=== PATIENT | female | born 1955 | race Caucasian/White ===

== ENCOUNTER 2022-05-22 08:00 | Outpatient (NON) | payer MEDICARE, SELFPAY | END 2022-05-22 08:01 | disposition home or self-care (01) | LOC: ANHLAB 05-23 08:20 | PROVIDERS: PCP Family Medicine Sports Medicine; Visit Provider Internal Medicine Gastroenterology | DX: Z12.11 Encounter for screening for malignant neoplasm of colon (principal); K21.9 Gastro-esophageal reflux disease without esophagitis | CPT/HCPCS: 88305; 88313; 88342 ==

== ENCOUNTER 2022-05-22 11:00 | Day surgery (SDC) | payer MEDICARE, SELFPAY ==
[2022-02-02 08:34] VITALS: BMI 28.0
[2022-05-10 09:49] VITALS: BMI 27.9
[2022-05-22 11:15] VITALS: BP 157/88; PULSE 95; RESP 16; TEMP 36.9; O2SAT 100
--- NOTE | 2022-05-22 12:17 | WPDANESEPPF ---
Anes - Initial Pre Proc Eval Procedure: Operation Date: 05/22/22 12:30 Proposed Procedures p Esophagogastroduodenoscopy - Marlon Bethea MD s Screening Colonoscopy - Marlon Bethea MD Date/Time: 05/22/22 12:17 Surgeon: Marlon Bethea MD Pre Op Diagnosis: Gerd and Neoplasm Screening Patient Data Age: 67 Gender: F Height: 1.6 m Weight: 71.3 kg Allergies Allergy/AdvReac Type Severity Reaction Status Date / Time Penicillins Allergy Intermediate RASH A Verified 05/10/22 09:48 CHILD acetaminophen AdvReac Intermediate SEVERE N/V Verified 05/10/22 09:48 codeine AdvReac Intermediate SEVERE N/V Verified 05/10/22 09:48 lisinopril AdvReac Unknown COUGH Verified 05/10/22 10:00 WINE AdvReac Severe ANAPHALACTIC Uncoded 01/02/22 08:29 REACTION HYDROCODONE BIT AdvReac Intermediate SEVERE N/V Uncoded 05/10/22 09:48 Home Medications Medication Instructions Recorded Confirmed Type amlodipine 5 mg-valsartan 160 mg 1 tablet PO DAILY 04/21/20 05/22/22 History tablet cholecalciferol (vitamin D3) 25 25 mcg PO DAILY 04/21/20 05/22/22 History mcg (1,000 unit) capsule aluminum hydrox-magnesium carb 95 15 ml PO DAILY PRN Acid Reflux 05/10/22 05/22/22 History mg-358 mg/15 mL oral suspension (Gaviscon) atorvastatin 10 mg tablet 10 mg PO DAILY 05/10/22 05/22/22 History Patient hx anesthesia problems: none Family hx anesthesia problems: none Results Review: All pre-operative results and documents have been reviewed as part of the pre-operative evaluation. [facility] Past Medical History Medical History Arthritis of left knee Hyperlipidemia Hypertension Osteoporosis Ulcerative colitis Surgical History Surgical History Fracture of left tibial plateau 1985 ORIF H/O laminectomy H/O: hysterectomy History of carpal tunnel release right, 2019 Dr. Guzman History of hip replacement left, Dr. 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 [employer] Gender identity (if verbalized by the patient): Female Spiritual care concerns: No Anes - Eval Final PreProcedure Day of Procedure 05/22/22 12:17 Patient weight: overweight Heart: regular rate and rhythm Lungs: clear to auscultation Airway: Mallampati scale class II Neurological: alert and oriented Last oral intake: >/= 8 hours ASA classification: III Emergent: no Anesthetic plan: proceed Anesthesia type and monitoring: general GIVS and standard monitoring Results Review: All pre-operative results and documents have been reviewed as part of the pre-operative evaluation. Informed Consent: The patient's anesthetic plan and its attendant risks and benefits were discussed with the patient/family/POA. Questions were solicited and answers provided to the satisfaction of the patient/family/POA.
--- NOTE | 2022-05-22 12:21 | PM.HPGS ---
History of Present Illness History of Present Illness Consent: Risks, benefits, and alternatives have been discussed and questions answered. Patient agrees to proceed with procedure. Chief complaint: Gerd and Neoplasm Screening Narrative: Kathy Ash is a 67 year old female Presents for colonoscopy and EGD. Patient has lifelong history of heartburn. She has substernal burning. Currently only takes [id number]-[id number] antacids with brief results. She denies any bleeding or dysphagia. An EGD is requested. Patient also desires neoplasia screening colonoscopy. Family history is noncontributory. Patient reports weight appetite bowel movements are normal. She has no bleeding. Review of Systems Review of Systems: Review of systems noncontributory. [facility] Past Medical History Medical History Arthritis of left knee Hyperlipidemia Hypertension Osteoporosis Ulcerative colitis Surgical History Surgical History Fracture of left tibial plateau 1985 ORIF H/O laminectomy H/O: hysterectomy History of carpal tunnel release right, 2019 Dr. Guzman History of hip replacement left, Dr. 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[employer] Gender identity (if verbalized by the patient): Female Spiritual care concerns: No Meds Home Medications and Allergies Home Medications Medication Instructions Recorded Confirmed Type amlodipine 5 mg-valsartan 160 mg 1 tablet PO DAILY 04/21/20 05/22/22 History tablet cholecalciferol (vitamin D3) 25 25 mcg PO DAILY 04/21/20 05/22/22 History mcg (1,000 unit) capsule aluminum hydrox-magnesium carb 95 15 ml PO DAILY PRN Acid Reflux 05/10/22 05/22/22 History mg-358 mg/15 mL oral suspension (Gaviscon) atorvastatin 10 mg tablet 10 mg PO DAILY 05/10/22 05/22/22 History Allergies Allergy/AdvReac Type Severity Reaction Status Date / Time Penicillins Allergy Intermediate RASH A Verified 05/10/22 09:48 CHILD acetaminophen AdvReac Intermediate SEVERE N/V Verified 05/10/22 09:48 codeine AdvReac Intermediate SEVERE N/V Verified 05/10/22 09:48 lisinopril AdvReac Unknown COUGH Verified 05/10/22 10:00 WINE AdvReac Severe ANAPHALACTIC Uncoded 01/02/22 08:29 REACTION HYDROCODONE BIT AdvReac Intermediate SEVERE N/V Uncoded 05/10/22 09:48 Exam Narrative: Physical exam reveals patient to be alert. Vital signs stable. HEENT exam is unremarkable. Patient is anicteric. Lungs are clear to auscultation and percussion. Heart is without murmur or extra sounds. Abdomen bowel sounds are present soft nontender with no organomegaly. Digital external rectal exam normal. Assessment and Plan Assessment and plan (1) GERD (gastroesophageal reflux disease): Code(s): K21.9 - Gastro-esophageal reflux disease without esophagitis Status: Acute Assessment and Plan: Patient with long history of persistent heartburn. Poorly responsive to over a counter antacids. Plan for EGD. Anticipate she would benefit from either H2 blockers or PPI therapy. Anti-reflux measures are encouraged. [place] diet. Elevate head of bed at night. Further recommendations may be given after endoscopy. (2) Encounter for screening colonoscopy: Code(s): Z12.11 - Encounter for screening for malignant neoplasm of colon Status: Acute Assessment and Plan: Screening colon
[2022-05-22] MEDS: LACTATED RINGERS 1,000 ML 150 ML IV CONT (12:27)
[2022-05-22 12:57] VITALS: BP 91/74; PULSE 88; RESP 13; O2SAT 97
[2022-05-22 13:07] VITALS: BP 92/58; PULSE 85; RESP 14; O2SAT 100
--- NOTE | 2022-05-22 13:16 | WPDANESPN ---
Anes - Prog Note Post-Op Date/Time: 05/22/22 13:16 Cardiovascular status: normal Respiratory status: normal Airway patency: baseline Mental status: baseline Post-Op hydration status: normal Vital Signs: Last Vital Signs Temp 36.9 C 05/22/22 11:15 Pulse 85 05/22/22 13:07 Resp 14 05/22/22 13:07 BP 92/58 L 05/22/22 13:07 Pulse Ox 100 05/22/22 13:07 O2 Del Method Room Air 05/22/22 13:07 Pain Score (VAS): 0 I/O: Intake & Output 05/21/22 05/22/22 05/22/22 23:59 07:59 15:59 Intake Total 300 Balance 300 Patient Feedback: Patient satisfied with anesthetic care.
[2022-05-22 13:17] VITALS: BP 112/70; PULSE 78; RESP 13; O2SAT 98
== END 2022-05-22 13:39 | disposition home or self-care (01) ==
PROVIDERS: PCP Family Medicine Sports Medicine; Visit Provider Internal Medicine Gastroenterology
PROC: 0DJ08ZZ Inspection of Upper Intestinal Tract, Via Natural or Artificial Opening Endoscopic (ICD-10-PCS; CPT 43235; principal; 2022-05-22 12:30)
PROC: 0DJD8ZZ Inspection of Lower Intestinal Tract, Via Natural or Artificial Opening Endoscopic (ICD-10-PCS; CPT 45378; 2022-05-22 12:30)
DX: Z12.11 Encounter for screening for malignant neoplasm of colon (principal)
CPT/HCPCS: 45380; 43239

== ENCOUNTER 2024-10-07 09:49 | Outpatient (CLI) | payer MEDICARE, SELFPAY ==
--- NOTE | ~2024-10-07 | DEXA_ITS ---
Bone Density Report Name: SHANTE NOBLES Age: 69 Sex: Female Ethnicity: White Date of : 1955 Indication: postmenopausal; screening for osteoporosis; height loss; prior fracture; asthma or emphysema; hysterectomy; Referring Provider: MAGDY JACKSON Study: Bone densitometry was performed. Exam Date: October 07, 2024 Accession number: [id number] Bone Density: Region BMD T-score Z-score Classification AP Spine(L1-L4) 0.728 -2.9 -0.7 Osteoporosis Femoral Neck (Right) 0.687 -1.5 0.4 Osteopenia Total Hip (Right) 0.726 -1.8 -0.2 Osteopenia World Health Organization criteria for BMD impression classify patients as: Normal (T-score at or above -1.0), Osteopenia (T-score between -1.0 and -2.5), or Osteoporosis (T-score at or below -2.5). 10-year Fracture Risk: FRAX not reported because: Some T-score for Spine Total or Hip Total or Femoral Neck at or below -2.5 Prior hip or vertebral fracture Clinical Information Provided by Patient: Have had a previous hip or vertebral fracture Has had a low trauma fracture Has used the following medications: Vitamin D, Calcium Has the following medical conditions: Asthma or Emphysema, Hysterectomy Patient maximum height was 65 Menopause Age: 54 No regular weight bearing exercise Drinks caffeinated beverages Onset of menses at age 10 Number of children 2 Impression: The patient has established osteoporosis, based on the Total Spine T-score and the existence of a prior fracture. The patient has risk factors, including: previous fracture. Discussion: HIGH RISK OF FRACTURE. BONE DENSITY IS UNDESIRABLY LOW AT ONE OR MORE SKELETAL SITES, CONSISTENT WITH POSTMENOPAUSAL OSTEOPOROSIS. This patient's lowest T-score, in a patient who has previously fractured, meets the World Health Organization's (WHO) criteria for severe osteoporosis. In untreated patients, the risk of osteoporotic fracture increases approximately two-fold for each 1.0 SD decrease in T-score. Low bone density is not the only risk factor for fracture; also consider factors such as patient's age, frailty or poor health, risk of falling, risk of injury, previous osteoporotic fracture, family history of osteoporosis, cigarette smoking, low body weight, etc. Not everyone with low bone mineral density has osteoporosis; osteomalacia and other metabolic bone disorders should also be considered. Patients who have osteoporosis should be evaluated for specific diseases and conditions (secondary causes) that may cause or contribute to bone loss. The [place] Association of Clinical Endocrinologists (AACE) and National Osteoporosis Foundation (NOF) recommend pharmacologic intervention for all postmenopausal women with a previous hip or vertebral fracture and a T-score in this range. The patient should follow a healthful lifestyle (good nutrition with adequate calcium and vitamin D, and appropriate weight-bearing exercise). Follow-Up: Consider a repeat BMD and Vertebral Fracture Assessment (VFA) exam in 2 years or sooner if medically necessary, to reassess this patient's status. Reported by: BHARGAVI on 10/07/2024 10:31:00 AM. Reviewed, dictated and finalized at location ADayday [facility]
--- OUTSIDE RECORDS SUMMARY | 2024-10-07 10:50 | XMS_ITS | Encounter Summary ---
Author Organization [facility] Address [facility] [place] [address] Care Team Providers Care Machine Design Engineer Name Role Phone Kari Cronin Primary Care Provider [phone] Anita Croft RN Unavailable [phone] Encounter Details Date Type Department Care Team (Late st Contact Info) Description 05/05/2021 [facility], [address] [address] Chyna Pop MA Social History Tobacco Use Types Packs/Day Years Used Date Smoking Tobacco: Never Smokeless Tobacco: Never Alcohol Use Standard Drinks/Week Comments Yes 0 (1 standard drink = 0.6 oz pur e alcohol) socially AUDIT-C Answer Date Recorded Frequency of Alcohol Consumption Monthly or less 01/05/2019 Average Number of Drinks Not on file 019 Frequency of Binge Drinking Not on file 12/22 PHQ-2 Answer Date Recorded PHQ-2 Score - If the patient scores above 3, please move on to questions 3-9 0 03/07/2021 Comments No Sex and Gender Information Value Date Recorded Sex Assigned at Female 07/22/2023 4:26 PM OFFBEARER SEWER PIPE Legal Sex Female 4:04 PM CDT Gender Identity Female 07/04/2021 2:05 PM OFFBEARER SEWER PIPE Sexual Orientation Straight 07/22/2023 4: 26 PM OFFBEARER SEWER PIPE documented as of this encounter Plan of Treatment Upcoming Encounters Date Type Department Care Team (Late st Contact Info) Description 10/16/2024 2:30 PM CDT Appoint[place] [address] [place] [address] Yolis Chung APRN [address] [facility] [address] [place] [address] 10/23/2024 2:40 PM CDT Office Visit [facility] - [facility] [address] [facility], [address] [place] [address] Blaze Urena MD [address] [place] [address] documented as of this encounter Procedures Procedure Name Priority Date/Time Associated Diagnosis Comments VITAMIN D, 25 OH Routine 05/04/2021 documented in this encounter Results * VITAMIN D, 25 OH (05/04/2021) VITAMIN D 25 HYDROXY S/P/B 42 05/04/2021 us Doc [facility] LABORATORY Final Result documented in this encounter Visit Diagnoses Not on filedocumented in this encounter Additional Health Concerns Assessment Noted Time PHQ-9 Depression Total Score: 0 03/07/20 21 2:50 PM CDT documented as of this encounter Care Teams Machine Design Engineer Relationship Specialty Start Date End Date Kari Cronin DO [address] [place], [place] [id number] PCP - General FAMILY PRACTICE 01/02/19 Anita Croft, RN [address] [place] [address] Dye Can Operator (Ambulatory) REGISTERED NURSE 01/07/24 documented as of this encounter
--- OUTSIDE RECORDS SUMMARY | 2024-10-07 10:50 | XMS_ITS | Clinical Summary ---
Author Organization [facility] Medical [facility] [address] Address [address] [place] [address] Care Team Providers Care Beater Lead Name Role Phone Kari Cronin DO Primary Care Provider [phone] Allergies Active Allergy Reactions Criticality Noted Date Comments Shola Inhibitors Cough Medium 11/29/2011 Cephalosporins Rash Medium 04/23/2011 Diltiazem Unknown Low 04/23/2011 Hydrocodone-Acetaminophen Anxiety Low 04/23/2011 Want to climb [place]. anxious Penicillins Other (See comments) Low 04/20/2013 Medications amlodipine-vals nasim (EXFORGE) 5-160 mg per tablet TAKE 1/2 TABLET BY MOUTH TWICE A DAY 08/24/2019 Active cholecalciferol (VITAMIN D-3) 25 mcg (1,000 unit) tablet Take 1 tablet (1,000 Units total) by mouth daily 06/24/2014 Active ergocalciferol (VITAMIN D) 50,000 unit capsule Take 1 capsule by mouth every 2 (two) weeks 04/24/2015 Active albuterol HFA (PROVENTIL HFA,VENTOLIN HFA,PROAIR HFA) 90 mcg/actuation inhaler Inhale 2 puffs every 4 (four) hours as needed 12/30/2017 Active Active Problems Problem Noted Date Diagnosed Date Age-related osteoporosis wit hout current pathological fracture 09/21/2019 Overview (09/21/2019): Reclast at PCP office? 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 (Primary Dx) 07/17/2024 11:12 AM LEAD SUPPLY WORKER - 07/17/2024 11:59 PM LEAD SUPPLY WORKER Hospital Encounter [facility] Advanced Medicine Breast Imaging [facility] ([facility]) [address] [place] [address] Screening mammogram, encounter for Discharge Disposition: Discharge to home or self care from Last 3 Months Medical History Medical History Date Comments Cataract Family History Medical History Relation Name Comments Broken bones Mother Osteoporosis Mother Family history of osteoporosis - (Added by TW Conv) Osteoporosis Sister Family history of osteoporosis - (Added by TW Conv) Relation Name Status Comments Mother Sister Social History Tobacco Use Types Packs/Day Years Used Date Smoking Tobacco: Never Smokeless Tobacco: Never Comments Unknown Sex and Gender Information Value Date Recorded Sex Assigned at Not on file Legal Sex Female 8:50 PM LEAD SUPPLY WORKER Gender Identity Female 04/15/2018 1:46 PM CDT Sexual Orientation Not on file Obstetrics History Last Filed Vital Signs Vital Sign Reading Time Taken Comments Blood Pressure 155/91 06/22/2015 12:58 PM LEAD SUPPLY WORKER Pulse 68 06/22/2015 12:58 PM LEAD SUPPLY WORKER Temperature - - Respiratory Rate - - Oxygen Saturation - - Inhaled Oxygen Concentration - - Weight 66.7 kg (147 lb) 04/15/2018 2:03 PM CDT Height 163 cm (5' 4.17 ) 04/15/2018 2:03 PM CDT Body Mass Index 25.1 04/15/2018 2:03 PM CDT Plan of Treatment Health Maintenance Due Date Last Done Comments Colon Cancer Screening-Colonoscopy 1955 Depression Screening 1955 Fall Risk Assessment 1955 Hepatitis C Screening 1955 DTaP/Tdap/Td Vaccine (1 - Tdap) 1964 Hepatitis B Screening 1971 Pneumococcal vaccine 65+ (1 of 2 - PCV) 1972 Well Visit 65+ 2018 Osteoporosis Screening-Bone Density Scan 04/15/2020 04/15/2018, 10/16/2016, 06/22/2015, Additional history exists Covid-19 Vaccine (3 - 2023-2 5 season) 2024 01/09/2022, 02/23/2021 Influenza Vaccine (Season Ended) 2025 04/05/20, 03/13/2019 Breast Cancer Screening-Mammogram 07/17/2025 07/17/2024, 07/01/2023, 05/10/2022, Additional history exists Zoster Vaccine Completed 02/06/2023, 10/09/2022 Procedures Procedure Name Priority Date/Time Associated Diagnosis Comments FUNDUS PHOTOS/FAF - OU - BOTH EYES Routine 07/31/2024 4:03 PM LEAD SUPPLY WORKER 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 OCT, RETINA - OU - BOTH EYES Routine 07/31/2024 3:16 PM LEAD SUPPLY WORKER 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 Progression has no prior data. Left Eye Quality was good. Progression has no prior data. Notes OD: inferior nevus, +drusen, no OP; no heme; minimal elevation OS: no rt/b/h Luanne Joseph MD OPHTH PHOTOGRAPHY Final Re sult * OCT, Retina - OU - Both Eyes (07/31/2024 3:16 PM LEAD SUPPLY WORKER) Anatomical Region Laterality Modality Head Optical Coherenc e Tomography Narrative 07/31/2024 3:16 PM LEAD SUPPLY WORKER Right Eye Quality was good. Scan locations included subfoveal. Left Eye Quality was good. Scan locations included subfoveal. Notes No cystoid macular edema (CME) both eyes (OU); PVD OS Luanne Joseph MD OPHTH TOMOGRAPHY Final Res ult * Screening Mammogram Bilateral W Gamaliel (07/17/2024 11:37 AM LEAD SUPPLY WORKER) Anatomical Region Laterality Modality Breast Bilateral Mammography Narrative 07/20/2024 4:31 PM LEAD SUPPLY WORKER Mammogram Technique: Bilateral Digital Breast Tomosynthesis, Bilateral C-view 2D Screening mammogram. Views obtained: bilateral craniocaudal and bilateral mediolateral oblique. Computer Aided Detection was performed. Mammogram Findings: The present examination has been compared to prior imaging studies performed at [facility] on 02/15/2021, 05/10/2022 and 07/01/2023. The breasts are almost entirely fatty. There is no suspicious abnormality in either breast. Impression: There is no mammographic evidence of malignancy. Annual screening mammography is recommended. OVERALL FINAL ASSESSMENT: BI-RADS CATEGORY 1: Negative. Procedure Note Diasy Huynh MD - 07/20/2024 Mammogram Technique: Bilateral Digital Breast Tomosynthesis, Bilateral C-view 2D Screening mammogram. Views obtained: bilateral craniocaudal and bilateral mediolateral oblique. Computer Aided Detection was performed. Mammogram Findings: The present examination has been compared to prior imaging studies performed at [facility] on 02/15/2021, 05/10/2022 and 07/01/2023. The breasts are almost entirely fatty. There is no suspicious abnormality in either breast. Impression: There is no mammographic evidence of malignancy. Annual screening mammography is recommended. OVERALL FINAL ASSESSMENT: BI-RADS CATEGORY 1: Negative. us Self Screening Mammogram IMG MAMMO PROCEDURES Fi nal Result * Dexa Axial Skeleton Bone Density 1 or 2 Site (04/15/2018 2:27 PM CDT) Anatomical Region Laterality Modality Body N/A Radiographic Olimpia ging Narrative 04/15/2018 2:31 PM CDT Patient Name: Shante Ash Date of : 1955 Date of scan: 04/15/2018 Bone mineral density was performed on a [employer] Discovery Densitometer. Machine Cross-calibration and Precision studies have been performed with a least significant change of 0.024 g/cm at the spine, 0.020 g/cm at the total proximal femur, and 0.014g/cm at the forearm. HISTORY: This is a 62 y.o. postmenopausal female with a history of low bone mass and vitamin D deficiency. Currently on treatment with vitamin D. History of tobacco use: History Smoking Status Never Smoker INDICATIONS: Menopause status, history of prior hip fracture, vitamin D deficiency and history of low bone mass. FINDINGS: BONE MINERAL DENSITY OF THE LUMBAR SPINE Bone Mineral Density (BMD) of the lumbar spine was measured from L1-L4 and the average density was calculated to be 0.789 gm/cm. This corresponds to a T-score standard deviations from the mean of young adults of -2.3. When compared to the previous study of 10/16/2016 there has been a measured -0.054 gm/cm -6.5 % decrease which is considered significant. BONE MINERAL DENSITY OF THE PROXIMAL FEMUR Bone Mineral Density (BMD) of the right hip total was found to be 0.703 gm/cm2. This corresponds to a T-score standard deviations from the mean of young adults of -2.0. Femoral neck is 0.667 gm/cm2 with a T-score of -1.6. When compared to the previous study of 10/16/2016 there has been no significant change noted. SUMMARY: Bone mineral density shows evidence of low bone mass in the hip and spine and moderately increased fracture risk. There has been significant decrease in bone mineral density since previous measurement. ADDITIONAL COMMENTS: If the patient has a history of a fragility fracture, a fracture that occurred with trauma equivalent to a fall from a standing position or less, then the diagnosis is osteoporosis. The risk of osteoporotic fracture increases approximately 2-fold for each 1.0 SD decrease in T-score. However, low bone density is not the only risk factor for fracture. Other factors include patient s age, previous osteoporotic fracture or prior fracture as an adult, loss of height of greater than 2 inches, corticosteroid use, risk of falling, risk of injury, and family history of osteoporosis. Not everyone with low bone mineral density has osteoporosis. Osteomalacia and other metabolic bone disorders should also be considered where indicated. Patients who have osteoporosis should be evaluated for specific diseases and conditions (secondary causes) that may cause or contribute to bone loss. Consider repeating this study in 1-2 years to assess the patient s response to treatment, if applicable. It is recommended that any follow up exam be performed on the same machine if possible for better accuracy. DEFINITIONS: Osteoporosis: BMD at or below -2.5 T-score Osteopenia (low bone mass): BMD between -1.0 and-2.5 T-score. The Bone Health Program adopts the following WHO definitions: Osteoporosis: BMD below -2.5 S.D. as compared to the BMD of young normal adults. Osteopenia or Low Bone Mass: BMD between -1.0 and -2.5 S.D. below the BMD of young normal adults. Normal Bone Density: BMD equal to or greater than -1.0 S.D. as compared to the BMD of young normal adults. References: 1) Francisco Javier, Annals of Internal Medicine 114(11): 919-923 (1990) 2) Saucedo, Lancet 341 : 72-75 (1992) 3) Black, Journal Bone and Mineral Research 7(6): 633-8 (1991) 4) Shields, Journal Bone and Mineral Research 8(10):1227-33 (1992) The history and data sections of the bone mineral density scan were prepared by Elana Dawn who is accredited by the International Society of Clinical Densitometry. The overall patient assessment and scan interpretation were performed by Nicole Albright M.D. who is certified by the International Society of Clinical Densitometry. [id number] Nicole Albright MD IMG DXA PROCEDURES Final Re sult from Last 3 Months or Most Recently Relevant to Health Maintenance Insurance [employer] MEDICARE [employer] OPEN ACCESS MEDICARE [facility] MEDICARE [facility] Address: [address] [address] [place] [address] T MEDICARE [facility] MEDIC[facility] Address: [address] [place] [address] Care Teams Beater Lead Relationship Specialty Start Date End Date Kari Cronin DO [address] [place] [address] [place] [address] PCP - General 10/16/16
--- OUTSIDE RECORDS SUMMARY | 2024-10-07 10:50 | XMS_ITS | Encounter Summary ---
Author Organization [facility] Address [facility] [place] [address] Care Team Providers Care Special Needs Child Caregiver Name Role Phone Kari Cronin Beti SIM Primary Care Provider [phone] Reason for Visit * Reason Onset Date Comments Follow Up Call 10/07/2024 Encounter Details Date Type Department Care Team (Late st Contact Info) Description 10/07/2024 Telephone [facility] Medical Group Multispecialty Care - [facility] [address] [facility], [address] [place] [phone] Yolis Chung APRN [address] [facility] [address] [place] [address] Follow Up Call Social History Tobacco Use Types Packs/Day Years Used Date Smoking Tobacco: Never Smokeless Tobacco: Never Alcohol Use Standard Drinks/Week Comments Yes 0 (1 standard drink = 0.6 oz pur e alcohol) socially B1300 Health Literacy Answer Date Recor ded How often do you need to hav e someone help you when you read instructions, pamphlets, or other written material from your doctor or pharmacy? Never 01/06/2024 [facility] Utilities Answer Date Recorded In the past 12 months has th e electric, gas, oil, or water company threatened to shut off services in your home? No 01/06/2024 Humiliation, Afraid, Rape, and Kick questionnair e Answer Date Recorded Within the last year, have y ou been afraid of your partner or ex-partner? No 01/06/2024 Within the last year, have y ou been humiliated or emotionally abused in other ways by your partner or ex-partner? No Within the last year, have y ou been kicked, hit, slapped, or otherwise physically hurt by your partner or ex-partner? No 01/06/2024 Within the last year, have y ou been raped or forced to have any kind of sexual activity by your partner or ex-partner? No 01/06/2024 AUDIT-C Answer Date Recorded Frequency of Alcohol Consumption Monthly or less 01/05/2019 Average Number of Drinks Not on file 019 Frequency of Binge Drinking Not on file 12/22 Overall Financial Resource Strain (CARDIA) Answe r Date Recorded How hard is it for you to pa y for the very basics like food, housing, medical care, and heating? Not hard at all 01/06/2024 PHQ-2 Answer Date Recorded Patient Health Questionnaire-2 Score 0 09/06/2022 [facility] - Occupational Stress Questionnaire Answer Date Recorded Do you feel stress - tense, restless, nervous, or anxious, or unable to sleep at night because your mind is troubled all the time - these days? Not at all 01/06/2024 Exercise Vital Sign Answer Date Recorde d On average, how many days pe r week do you engage in moderate to strenuous exercise (like a brisk walk)? 0 days 01/06/2024 On average, how many minutes do you engage in exercise at this level? 0 min 01/06/2024 Hunger Vital Sign Answer Date Recorded Within the past 12 months, y ou worried that your food would run out before you got the money to buy more. Never true 01/06/20 24 Within the past 12 months, t he food you bought just didn't last and you didn't have money to get more. Never true 01/06/2024 PRAPARE - Transportation Answer Date Re corded In the past 12 months, has l ack of transportation kept you from medical appointments or from getting medications? No 12/22 In the past 12 months, has l ack of transportation kept you from meetings, work, or from getting things needed for daily living? No 01/06/2024 Housing Stability Vital Sign Answer Rene e Recorded In the last 12 months, was t here a time when you were not able to pay the mortgage or rent on time? No 01/06/2024 In the past 12 months, how m any times have you moved where you were living? 1 01/06/2024 At any time in the past 12 m [facility], were you homeless or living in a jail (including now)? No 01/06/2024 Comments No Sex and Gender Information Value Date Recorded Sex Assigned at Female 07/22/2023 4:26 PM ADMINISTRATIVE ASSISTANT FRONT DESK Legal Sex Female 4:04 PM CDT Gender Identity Female 07/04/2021 2:05 PM ADMINISTRATIVE ASSISTANT FRONT DESK Sexual Orientation Straight 07/22/2023 4: 26 PM ADMINISTRATIVE ASSISTANT FRONT DESK documented as of this encounter Functional Status * Are you deaf or do you have serious difficulty hearing Answer Date of Assessment Author Status No 01/06/2024 5:24 PM SANTOST Andreina Díaz RN Active * Are you blind or do you have serious difficulty seeing, even when wearing glasses? Answer Date of Assessment Author Status No 01/06/2024 5:24 PM SANTOST Andreina Díaz RN Active * Do you have serious difficulty walking or climbing stairs? Answer Date of Assessment Author Status No 01/06/2024 5:24 PM SANTOST Adnreina Díaz RN Active * Do you have difficulty dressing or bathing? Answer Date of Assessment Author Status No 01/06/2024 5:24 PM SANTOST Andreina Díaz RN Active * Because of a physical, mental, or emotional condition, do you have difficulty doing errands alone such as visiting a doctor's office or shopping? Answer Date of Assessment Author Status No 01/06/2024 5:24 PM Andreina Rico RN Active documented as of this encounter Mental Status * Because of a physical, mental, or emotional condition, do you have serious difficulty concentrating, remembering, or making decisions? Answer Entry Date Author Status No 01/06/2024 5:24 PM Andreina Rico RN Active documented in this encounter Progress Notes * Mehreen Stein LPN - 10/07/2024 8:41 AM CDT Called patient back. Informed her of CT scan. She states it has already been schedule next week. VU. * Tamela Pinto - 10/07/2024 8:33 AM CDT Patient returned your call. Please give her a call back * Brianda Leums MA - 10/07/2024 8:10 AM CDT Called Kathy and [employer] No name on vm, unable to leave any information. ----- Message from Yolis Chung APRN sent at 10/06/2024 4:21 PM CDT ----- Patient is [address]comm[address] lumbar spine for possible need for bone stimulator. CT ordered. Please call patient. documented in this encounter Plan of Treatment Upcoming Encounters Date Type Department Care Team (Late st Contact Info) Description 10/16/2024 2:30 PM CDT [place] [address] [place] [address] Yolis Chung APRN 3 [facility] [address] [place] [address] 10/23/2024 2:40 PM CDT Office Visit [facility] Medical Group Multispecialty Care - [facility] [address] [facility], [address] [place] [address] Blaze Urena MD 3 [place] [address] documented as of this encounter Goals Goal Patient Goal Type Associated Problems Recent Progress Patient-Stated? Author Family - family caregiver with be involved in care transitions and discharge planning Lifestyle No Venkat Mansfield RN documented as of this encounter Visit Diagnoses Not on filedocumented in this encounter Additional Health Concerns Assessment Noted Time PHQ-9 Depression Total Score: 0 07/06/19 22 1:27 PM ADMINISTRATIVE ASSISTANT FRONT DESK documented as of this encounter Care Teams Special Needs Child Caregiver Relationship Specialty Start Date End Date Kari Cronin DO [address] [place] [address] [place] [address] PCP - General FAMILY PRACTICE 01/02/19 documented as of this encounter
--- OUTSIDE RECORDS SUMMARY | 2024-10-07 10:50 | XMS_ITS | CONTINUITY OF CARE DOCUMENT ---
Author Name mick barton Address Unknown Organization [facility] Address [id number] [place] [address] [address] [place] [address] Phone [phone] Care Team Providers Care Physical Security Specialist Name Role Phone mick barton Unavailable Unavailable INSURANCE PROVIDERS Payer name Policy type / Coverage type [place] red libertarian ID [id number] PPO Other [id number]
--- OUTSIDE RECORDS SUMMARY | 2024-10-07 10:50 | XMS_ITS | Encounter Summary ---
Author Organization [facility] Address [facility] [place] [address] Care Team Providers Care Assistant Golf Coach Name Role Phone Kari Cronin Primary Care Provider [phone] Anita Croft RN Unavailable [phone] Encounter Details Date Type Department Care Team (Late st Contact Info) Description 12/27/2023 Prep for Procedure [facility] [place] [address] Blaze Urena MD 3 [place] [address] Social History Tobacco Use Types Packs/Day Years [...] on file 12/22 PHQ-2 Answer Date Recorded Patient Health Questionnaire-2 Score 0 09/06/2022 Comments No Sex and Gender Information Value Date Recorded Sex Assigned at Female 07/22/2023 4:26 PM CHRISTMAS TREE FARMER Legal Sex Female 4:04 PM CDT Gender Identity Female 07/04/2021 2:05 PM CHRISTMAS TREE FARMER Sexual Orientation Straight 07/22/2023 4: 26 PM CHRISTMAS TREE FARMER documented as of this encounter Functional Status * Calculated C-SSRS Risk Score (Lifetime/Recent) Answer Date of Assessment Author Status No Risk Indicated 12/27/2023 11:36 AM CDT Debra Ag RN Active * [place] Suicide Severity Rating Scale (Screener/Recent Self-Report) Question Answer Date of Assessment Author Status 1. Wish to be (Past 1 Month) No 12/27/2023 11:36 AM CDT Deanna Ag RN Ac tive 2. Non-Specific Active Suicidal Thoughts (Past 1 Month) No 12/27/2023 11:36 AM CDT Deanna Ag RN Ac tive 6. Suicidal Behavior (Lifetime) No 12/27/2023 11:36 AM CDT Deanna Ag RN Ac tive documented as of this encounter Plan of Treatment Upcoming Encounters Date Type Department Care Team (Late st Contact Info) Description 10/16/2024 2:30 PM CDT Appointment [facility] [address] [place], [place] [id number] Yolis Chung APRN 3 [facility] [address] [place] [address] 10/23/2024 2:40 PM CDT Office Visit [facility] Medical Group Multispecialty Care - [facility] [address] [facility], [address] [place] [address] Blaze Urena MD 3 [place] [address] documented as of this encounter Results * URINE BACTERIA CULTURE (12/27/2023 11:29 AM CDT) SPEC DESCRIPTION URINE CLEAN CATCH 12/27/2023 12:39 PM CDT [facility] SPECIAL REQUESTS NO SPECIAL REQUEST 12/27/2023 12:39 PM CDT [facility] CULTURE RESULT POLYMICROBIAL GROWTH CONSISTENT WITH NORMAL GENITAL SULY. SUSCEPTIBILITIES NOT ROUTINELY PERFORMED. 12/29/2023 7:58 AM CDT [facility] URINE SPECIMEN OBTAINED BY CLEAN CATCH PROCEDURE / Unknown 12/27/2023 11:29 AM CDT 12/27/2023 12:42 PM CDT us Yolis Chung URGENT CARE PHYSICIAN MICROBIOLOGY - GENERAL ORD ERABLES Final Result [facility] [address] [place] [address], documented in this encounter Visit Diagnoses Diagnosis Bacteria in urine- Primary Other nonspecific finding on examination of urine documented in this encounter Additional Health Concerns Assessment Noted Time PHQ-9 Depression Total Score: 0 07/06/19 22 1:27 PM CHRISTMAS TREE FARMER documented as of this encounter Care Teams Assistant Golf Coach Relationship Specialty Start Date End Date Kari Cronin DO [address] [place] [address] [place], [place] [id number] PCP - General FAMILY PRACTICE 01/02/19 Anita Croft, RN [address] [place] [address] Business Intelligence Consultant (Ambulatory) REGISTERED NURSE 01/07/24 documented as of this encounter
--- OUTSIDE RECORDS SUMMARY | 2024-10-07 10:50 | XMS_ITS | Encounter Summary ---
Author Organization [facility] Address [facility] [place] [address] Care Team Providers Care Monomer Recovery Supervisor Name Role Phone Kari Cronin DO Primary Care Provider [phone] Anita Croft RN Unavailable [phone] Encounter Details Date Type Department Care Team (Late st Contact Info) Description 05/28/2022 Abstract [facility] [address] [place], [place] [id number] Kari Cronin DO [address] [place], [place] [id number] Social History Tobacco Use Types Packs/Day Years [...] please move on to questions 3-9 0 07/06/2021 Comments No Sex and Gender Information Value Date Recorded Sex Assigned at Female 07/22/2023 4:26 PM COLOR CONTROL OPERATOR Legal Sex Female 4:04 PM CDT Gender Identity Female 07/04/2021 2:05 PM COLOR CONTROL OPERATOR Sexual Orientation Straight 07/22/2023 4: 26 PM COLOR CONTROL OPERATOR COVID-19 Exposure Response Date Recorded In the last 10 days, have yo u been in contact with someone who was confirmed or suspected to have Coronavirus/COVID-19? No / Unsure 05/24/2022 10:06 AM COLOR CONTROL OPERATOR documented as of this encounter Plan of Treatment Upcoming Encounters Date Type Department Care Team (Late st Contact Info) Description 10/16/2024 2:30 PM CDT [place] [address] [place] [address] Yolis Chung APRN [address] [facility] [address] [place] [address] 10/23/2024 2:40 PM CDT Office Visit [facility] Medical Group Multispecialty Care - [facility] [address] [facility], [address] [place] [address] Balze Urena MD 3 [place] [address] documented as of this encounter Visit Diagnoses Not on filedocumented in this encounter Additional Health Concerns Assessment Noted Time PHQ-9 Depression Total Score: 0 07/06/19 22 1:27 PM COLOR CONTROL OPERATOR documented as of this encounter Care Teams Monomer Recovery Supervisor Relationship Specialty Start Date End Date Kari Cronin DO [address] [place] [address] Dr [place]O [place] [id number] PCP - General FAMILY PRACTICE 01/02/19 Anita Croft, RN [address] [place] [address] Veterinary Nurse (Ambulatory) REGISTERED NURSE 01/07/24 documented as of this encounter
--- OUTSIDE RECORDS SUMMARY | 2024-10-07 10:50 | XMS_ITS | Referral Summary ---
Author Organization [facility] Medical [facility] 2 Address [address] [place] [address] Care Team Providers Care Foreign Food Cook Specialty Name Role Phone Kari Cronin DO Primary Care Provider [phone] Encounters Date Type Department Care Team Description 07/31/2024 2:30 PM STRAW HAT BRIM CUTTER OPERATOR Office Visit [facility] Ophthalmology [facility] 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) 07/17/2024 11:12 AM STRAW HAT BRIM CUTTER OPERATOR - 07/17/2024 11:59 PM STRAW HAT BRIM CUTTER OPERATOR Hospital Encounter [facility] Advanced Medicine Breast Imaging [facility] ([facility]) [address] [place] [address] Screening mammogram, encounter for Discharge Disposition: Discharge to home or self care from Last 3 Months Allergies Active Allergy Reactions Criticality Noted Date [...] 18 Assessment & Plan (06/06/2018 3:40 PM STRAW HAT BRIM CUTTER OPERATOR): 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) Stable, continue observation Social History Tobacco Use Types Packs/Day Years Used Date Smoking Tobacco: Never Smokeless Tobacco: Never Comments Unknown Sex and Gender Information Value Date Recorded Sex Assigned at Not on file Legal Sex Female 8:50 PM STRAW HAT BRIM CUTTER OPERATOR Gender Identity Female 04/15/2018 1:46 PM CDT Sexual Orientation Not on file Last Filed Vital Signs Vital Sign Reading Time Taken Comments Blood Pressure 155/91 06/22/2015 12:58 PM STRAW HAT BRIM CUTTER OPERATOR Pulse 68 06/22/2015 12:58 PM STRAW HAT BRIM CUTTER OPERATOR Temperature - - Respiratory Rate - - Oxygen Saturation - - Inhaled Oxygen Concentration - - Weight 66.7 kg (147 lb) 04/15/2018 2:03 PM CDT Height 163 cm (5' 4.17 ) 04/15/2018 2:03 PM CDT Body Mass Index 25.1 04/15/2018 2:03 PM CDT Plan of Treatment Not on file Procedures Procedure Name Priority Date/Time Associated Diagnosis Comments FUNDUS PHOTOS/FAF - OU - BOTH EYES Routine 07/31/2024 4:03 PM STRAW HAT BRIM CUTTER OPERATOR 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 OCT, RETINA - OU - BOTH EYES Routine 07/31/2024 3:16 PM STRAW HAT BRIM CUTTER OPERATOR 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 SCREENING MAMMOGRAM BILATERAL W GAMALIEL Schedule Routine, Read Routine (OP Routine) 07/17/2024 11:37 AM STRAW HAT BRIM CUTTER OPERATOR Screening mammogram, encounter for DEXA AXIAL SKELETON BONE DENSITY 1 OR MORE SITES Schedule Routine, Read Routine (OP Routine) 04/15/2018 2:27 PM CDT Osteopenia of multiple sites from Last 3 Months or Most Recently Relevant to Health Maintenance Results * Fundus Photos/FAF - OU - Both Eyes (07/31/2024 4:03 PM STRAW HAT BRIM CUTTER OPERATOR) Anatomical Region Laterality Modality Head Fundus Photograp hy Narrative 07/31/2024 4:03 PM STRAW HAT BRIM CUTTER OPERATOR Right Eye Quality was good. Progression has no prior data. Left Eye Quality was good. Progression has no prior data. Notes OD: inferior nevus, +drusen, no OP; no heme; minimal elevation OS: no rt/b/h Luanne Joseph MD OPHTH PHOTOGRAPHY Final Re sult * OCT, Retina - OU - Both Eyes (07/31/2024 3:16 PM STRAW HAT BRIM CUTTER OPERATOR) Anatomical Region Laterality Modality Head Optical Coherenc e Tomography Narrative 07/31/2024 3:16 PM STRAW HAT BRIM CUTTER OPERATOR Right Eye Quality was good. Scan locations included subfoveal. Left Eye Quality was good. Scan locations included subfoveal. Notes No cystoid macular edema (CME) both eyes (OU); PVD OS Luanne Joseph MD OPHTH TOMOGRAPHY Final Res ult * Screening Mammogram Bilateral W Gamaliel (07/17/2024 11:37 AM STRAW HAT BRIM CUTTER OPERATOR) Anatomical Region Laterality Modality Breast Bilateral Mammography Narrative 07/20/2024 4:31 PM STRAW HAT BRIM CUTTER OPERATOR Mammogram Technique: Bilateral Digital Breast Tomosynthesis, Bilateral C-view 2D Screening mammogram. Views obtained: bilateral craniocaudal and bilateral mediolateral oblique. Computer Aided Detection was performed. Mammogram Findings: The present examination has been compared to prior imaging studies performed at [facility] on 02/15/2021, 05/10/2022 and 07/01/2023. The breasts are almost entirely fatty. There is no suspicious abnormality in either breast. Impression: There is no mammographic evidence of malignancy. Annual screening mammography is recommended. OVERALL FINAL ASSESSMENT: BI-RADS CATEGORY 1: Negative. Procedure Note Daisy Huynh MD - 07/20/2024 Mammogram Technique: Bilateral Digital Breast Tomosynthesis, Bilateral C-view 2D Screening mammogram. Views obtained: bilateral craniocaudal and bilateral mediolateral oblique. Computer Aided Detection was performed. Mammogram Findings: The present examination has been compared to prior imaging studies performed at [facility] on 02/15/2021, 05/10/2022 and 07/01/2023. The breasts [...] Narrative 04/15/2018 2:31 PM CDT Patient Name: Kathy Ash Date of : 1955 Date of scan: 04/15/2018 Bone mineral density was performed on a HoloPixelated Discovery Densitometer. Machine Cross-calibration and Precision studies [...] of Internal Medicine 114(11): 919-923 (1990) 2) Lewis, Lancet 341 : 72-75 (1992) 3) Sony, Journal Bone and Mineral Research 7(6): 633-8 (1991) 4) Cornelius, Journal Bone and Mineral Research 8(10):1227-33 (1992) The history and data sections of the bone mineral density scan were prepared by Elana Dawn who is accredited by the International Society of Clinical Densitometry. The overall patient assessment and scan interpretation were performed by Nicole Albright M.D. who is certified by the International Society of Clinical Densitometry. [id number] Nicole Albright MD IMG DXA PROCEDURES Final Re sult from Last 3 Months or Most Recently Relevant to Health Maintenance Insurance [employer] MEDICARE Ortho[employer] OPEN ACCESS MEDICARE [facility] Address: [address] [address] [place] [address] [facility] MEDICARE ADVANTAGE FOR[facility]LY [facility] MEDICARE [facility] MED[facility] Address: [address] [place] [address] Care Teams Foreign Food Cook Specialty Relationship Specialty Start Date End Date Kari Cronin DO [address] [place] [address] [place] [address] PCP - General 10/16/16
--- OUTSIDE RECORDS SUMMARY | 2024-10-07 10:50 | XMS_ITS | Clinical Summary ---
Author Organization [facility] Address [facility] [place] [address] Care Team Providers Care Divemaster Name Role Phone Kari Cronin DO Primary Care Provider [phone] Allergies Active Allergy Reactions Criticality Noted Date Comments Shola Inhibitors Cough Medium 11/29/2011 Cephalosporins Unknown Low 04/23/2011 Codeine Swelling,Hives Medium 12/31/2022 Diltiazem Unknown Low 04/23/2011 Hydrocodone-Acetaminophen Anxiety Low 04/23/2011 Want to climb [place]. anxious Penicillins Other (see comment),Rash Medium 04/23/2011 Unknown--one of her siblings is allergic. Unknown which Medications omeprazole (PRILOSEC) 40 MG capsule Take 1 capsule (40 mg total) by mouth as needed. 2 Active albuterol sulfate HFA 108 (90 Base) MCG/ACT inhalerIndicatio ns:Mild intermittent reactive airway disease without complication (HHS/HCC) Inhale 2 puffs into the lungs every 4 (four) hours as needed. 18 g 3 4 Active Misc. Devices MiscIndications: Lumbar spine instability 1 each by Does not apply route continuous. LSO for continuous wear while ambulating or up in chair. 1 each 4 Active calcium carbonate (TUMS) 500 MG chewable tabletIndication s:S/P lumbar fusion Chew 1 tablet (500 mg total) by mouth 2 (two) times daily. 90 tablet 4 Active amLODIPine Besylate-Valsart an 5-160 MG TabIndications:E ssential hypertension TAKE 1/2 TABLET TWICE A DAY BY MOUTH 90 tablet 1 4 Active teriparatide (FORTEO) 620 MCG/2.48ML injectionIndicat ions:Osteoporosi s, unspecified osteoporosis type, unspecified pathological fracture presence,S/P lumbar fusion,S/P lumbar laminectomy Inject 0.08 mLs (20 mcg total) into the skin daily. 28.8 mL 4 02/07/20 25 Active Additional Information Patient not taking.Reported on 07/21/2024 Cholecalciferol (D3 5000) 125 MCG (5000 UT) CapIndications:V itamin D deficiency 5,000 Units nightly. Active Active Problems Problem Noted Date Diagnosed Date Sacroiliitis 01/20/2024 Lumbar radiculopathy 01/08/2024 S/P lumbar laminectomy 01/08/2024 Degenerative disc disease, lumbar 01/08/2024 History of lumbar laminectomy 01/08/2024 History of lumbar discectomy 01/08/2024 Lumbar facet arthropathy 01/08/2024 S/P lumbar fusion 01/06/2024 Vitamin D deficiency 01/02/2024 Polymyalgia rheumatica (HHS/HCC) 07/22/2023 Post-traumatic osteoarthritis of left knee 07/22 Palpitation 07/22/2023 Overweight (BMI 25.0-29.9) 07/22/2023 Mild intermittent reactive a irway disease without complication (HHS/HCC) 07/22/2023 Age-related osteoporosis wit hout current pathological fracture 09/21/2019 Overview (07/22/2023): Reclast at PCP office? ergo twice monthly, D 1000/day Fractures in 1984 stationar bike, walk Reclast at PCP office? ergo twice monthly, D 1000/day Fractures in 1984 stationar bike, walk Reclast at PCP office? ergo twice monthly, D 1000/day Fractures in 1984 stationar bike, walk Reclast at PCP office? ergo twice monthly, D 1000/day Fractures in 1984 stationar bike, walk Reclast at PCP office? 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 06/06/20 18 Overview (07/22/2023): Last Assessment & Plan: 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) Stable, continue observation Last Assessment & Plan: 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) Stable, continue observation Last Assessment & Plan: 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) Stable, continue observation Last Assessment & Plan: 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) Stable, continue observation Last Assessment & Plan: 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) Stable, continue observation Mass of breast 05/16/2015 Overview (07/08/2018): Date Onset: 05/16/2015 Osteoporosis 05/16/2015 Overview (07/08/2018): Date Onset: 05/16/2015 Ulcerative colitis ([facility]) 07/29/2014 Overview (07/08/2018): Date Onset: 07/29/2014 Influenza B 07/29/2014 Overview (07/08/2018): Date Onset: 07/29/2014 Urinary tract infection 07/29/2014 Overview (07/08/2018): Date Onset: 07/29/2014 History of repair of hip joint 01/28/2014 Overview (07/08/2018): Date Onset: 01/28/2014 Muscular atrophy 01/28/2014 Overview (07/08/2018): Date Onset: 01/28/2014 Asymptomatic postmenopausal status 07/30/2013 Overview (07/08/2018): Date Onset: 07/30/2013 Other synovitis and tenosynovitis 07/30/2013 Overview (07/08/2018): Date Onset: 07/30/2013 Vitreous detachment 07/30/2013 Overview (07/08/2018): Note: Went to [facility] Date Onset: 07/30/2013 Mild hyperlipidemia 11/03/2012 Overview (07/08/2018): Date Onset: 11/03/2012 Tear film insufficiency 11/03/2012 Overview (07/08/2018): Date Onset: 11/03/2012 Hernia, hiatal 11/29/2011 Essential hypertension 11/29/2011 Gastroesophageal reflux 04/23/2011 Resolved Problems Problem Noted Date Diagnosed Date Resolved Date Spinal stenosis of lumbar re gion with neurogenic claudication 01/08/2024 02/17/2024 Foraminal stenosis of lumbar region 01/08/2024 02/17/2024 Crohn's disease of large int estine without complication ([facility]) 07/22/2023 Physical exam 07/22/2023 07/29/2023 Polymyalgia rheumatica ([facility]) 01/28/2014 06/06/2020 Overview (07/08/2018): Date Onset: 01/28/2014 Encounters Date Type Department Care Team Description 10/07/2024 [facility]phone [facility] - [facility] [address], [address] [place] [address] Yolis Chung, DISCHARGE DOOR OPERATOR Follow Up Call 10/06/2024 Telephone [facility] - [facility] [address], [address] [place] [address] Yolis Chung, DISCHARGE DOOR OPERATOR Surgery Follow Up 07/23/2024 Telephone [facility] [address] [place] [address] Kari Cronin, DO Results 07/21/2024 10:01 PM MEDART OPERATOR - 07/21/2024 11:59 PM MEDART OPERATOR Hospital Encounter [facility] [address] [place] [address] Kari Cronin, DO Discharge Disposition: Home or Self Care (Routine Discharge) 07/21/2024 4:20 PM MEDART OPERATOR Office Visit [facility] [address] [place] [address] Kari Cronin, Lab Results 07/21/2024 Travel 07/17/2024 Scan Touch of Classic INFO SRVCS Scanned, Doc Med Group Mammogram (SCAN) 07/15/2024 9:37 AM MEDART OPERATOR - 07/15/2024 11:59 PM MEDART OPERATOR Hospital Encounter [facility] [address] [place] [address] Nadia Munoz MD Hall, Tracy L, Discharge Disposition: Home or Self Care (Routine Discharge) 07/15/2024 9:34 AM MEDART OPERATOR - 07/15/2024 9:36 AM MEDART OPERATOR Hospital Encounter [facility] [address] [place] [address] Nadia Munoz MD Discharge Disposition: Home or Self Care (Routine Discharge) 07/15/2024 Orders Only [facility] [address] [place] [address] Nadia Munoz MD 07/15/2024 Travel from Last 3 Months Immunizations Immunization Administration Dates Next Due Fluzone High Dose - >Age 65 (Prefilled Syringe) 03/13/2019 Influenza Adult (Generic) 04/05/2021,03/13/2019 PFIZER COVID-19 (AMAYA CAP), MRNA, LNP-S, PF, 30 MCG/0.3 ML JIM-SUCROSE, IM 01/09/2022 Pneumococcal (Prevnar 20) 01/23/2023 Shingrix 02/06/2023,10/09/2022 Family History Medical History Relation Comments Diabetes Other Relation Status Comments Other Social History Tobacco Use Types Packs/Day Years Used Date Smoking Tobacco: Never Smokeless Tobacco: Never Tobacco Cessation:Counseling Given: Not Answered Alcohol Use Standard Drinks/Week Comments Yes 0 (1 standard drink = 0.6 oz pur e alcohol) socially [id number] Health Literacy Answer Date Recor ded How often do you need to hav e someone help you when you read instructions, pamphlets, or other written material from your doctor or pharmacy? Never 01/06/2024 [facility] Utilities Answer Date Recorded In the past 12 months has e Zappedy, Cardio control, or water Hithru threatened to shut off services in your [...] Recorded Patient Health Questionnaire-2 Score 0 09/06/2022 [facility] - Occupational Stress Questionnaire Answer Date Recorded [...] any time in the past 12 m [facility], were you homeless or living in a jail (including now)? No 01/06/2024 Comments No Sex and Gender Information Value Date Recorded Sex Assigned at Female 07/22/2023 4:26 PM MEDART OPERATOR Legal Sex Female 4:04 PM CDT Gender Identity Female 07/04/2021 2:05 PM MEDART OPERATOR Sexual Orientation Straight 07/22/2023 4: 26 PM MEDART OPERATOR Last Filed Vital Signs Vital Sign Reading Time Taken Comments Blood Pressure 131/76 07/21/2024 4:26 PM MEDART OPERATOR Pulse 77 07/21/2024 4:26 PM MEDART OPERATOR Temperature 37.6 C (99.6 F) 07/21/2024 4:26 PM MEDART OPERATOR Respiratory Rate 16 07/21/2024 4:26 PM MEDART OPERATOR Oxygen Saturation 100% 07/21/2024 4:26 PM MEDART OPERATOR Inhaled Oxygen Concentration - - Weight 77.1 kg (170 lb) 07/21/2024 4:26 PM MEDART OPERATOR Height 160 cm (5' 3 ) 07/21/2024 4:26 PM MEDART OPERATOR Body Mass Index 30.11 07/21/2024 4:26 PM MEDART OPERATOR Plan of Treatment Upcoming Encounters Date Type Department Care Team (Late st Contact Info) Description 10/16/2024 2:30 PM CDT Appointment [place] [address] [place], [place] [id number] Yolis Chung APRN [address] [address] [place] [address] 10/23/2024 2:40 PM CDT [facility] - [facility] [address], [address] [place] [id number] Blaze Urena MD [address] [place] [address] Health Maintenance Due Date Last Done Comments DTaP, Tdap and Td Vaccines (1 - Tdap) 1972 RSV Immunization or 60+ Years (1 - Risk 60-74 years 1-dose series) 2013 Annual Medicare Wellness Visit 2018 COVID-19 Vaccine (2 - season) 2024 01/09/2022 PHQ-2 (Physician [place]) 06/24/2024 Colorectal Cancer Screening Colonoscopy (10 Years) 02/09/2025 02/09/2015 Mammogram Screening 07/17/2026 07/17/2024, 07/17/2024, 07/01/2023, Additional history exists Dexa Scan (General) Completed 04/15/2018, 8 Hepatitis C Completed 01/12/2020 Pneumococcal Vaccine: 50+ Years Completed 01/23/2023 Zoster Vaccines Completed 02/06/2023, 10/09/2022 Meningococcal B Vaccine Aged Out No l onger eligible based on patient's age to complete this topic Meningococcal Vaccine Aged Out No chery dominique eligible based on patient's age to complete this topic RSV Immunizations Under 20 Months Aged Out No longer eligible based on patient's age to complete this topic Goals Goal Patient Goal Type Associated Problems Recent Progress Patient-Stated? Author Family - family caregiver with be involved in care transitions and discharge planning Lifestyle No Venkat Mansfield, RN Medical Devices Implanted Type Area Cancellation Clerk Device Identifier Shelf Expiration Date Model / Serial / Lot Putty Mouthcard Matrix Dbm/Dbf Bone 3ml - [id number] Implanted:Qty : 1 on 01/06/2024 by Blaze Urena MD at [facility] Bone N/A: Spine Lumbar [employer] [id number] 10/17/2025 [id number] / [id number] / . Graft Infuse Bone Small - [id number] Implanted:Qty : 1 on 01/06/2024 by Blaze Urena MD at [facility] Bone N/A: Spine Lumbar [employer] [id number] 12/22/2024 [id number] / / [id number] Medtronic Anteralign Spinal System Ls Spacer Implanted:Qty : 1 on 01/06/2024 by Blaze Urena MD at [facility] Cage N/A: Spine Lumbar [employer] [id number] 05/29/2030 [id number] / / [id number] Pyramid 37 Mm Plate Implanted:Qty : 1 on 01/06/2024 by Blaze Urena MD at [facility] Plate N/A: Spine Lumbar [employer] . [id number] / / . 35 Mm Voyager Capped David Implanted:Qty : 1 on 01/06/2024 by Blaze Urena MD at [facility] David N/A: Spine Lumbar [employer] . [id number] / / . 6.5 X 30 Mm Screws Implanted:Qty : 4 on 01/06/2024 by Blaze Urena MD at [facility] Screw N/A: Spine Lumbar [employer] . [id number] / / . 6.5 X 40 Voyager Screw Implanted:Qty : 1 on 01/06/2024 by Blaze Urena MD at [facility] Screw N/A: Spine Lumbar [employer] . [id number] / / . 7.5 X 40 Mm Voyager Screw Implanted:Qty : 1 on 01/06/2024 by Blaze Urena MD at [facility] Screw N/A: Spine Lumbar [employer] . [id number] / / . Graft Soft Tissue 4x4cm [facility] Allograft - [id number] Implanted:Qty : 1 on 01/06/2024 by Blaze Urena MD at [facility] Tissue N/A: Spine Lumbar [employer] 10/16/2028 [id number] / [id number] / . Voyager Set Screws Implanted:Qty : 2 on 01/06/2024 by Blaze Urena MD at [facility] N/A: Spine Lumbar [employer] . [id number] / / . Procedures Procedure Name Priority Date/Time Associated Diagnosis Comments URINE BACTERIA CULTURE Routine 07/21/2024 5:57 PM MEDART OPERATOR Urinary urgency URINALYSIS AUTO DIP Routine 07/21/2024 Urinary urgency MAMMOGRAM GENERIC (SCAN ORDER) 07/17/2024 VITAMIN D, 25 OH Routine 07/15/2024 9:39 AM MEDART OPERATOR Vitamin D deficiency CBC W/DIFF AUTOMATED Routine 07/15/2024 9:39 AM MEDART OPERATOR Essential hypertension COMPREHENSIVE METABOLIC PANEL Routine 07/15/2024 9:39 AM MEDART OPERATOR Essential hypertension LIPID PANEL Routine 07/15/2024 9:39 AM MEDART OPERATOR Essential hypertension HEP C AB W RFX TO HCV RNA/PCR W RFX TO GENOTYPE,LIPA LD Routine 01/12/2020 9:49 AM CDT COLONOSCOPY GENERIC (SCAN ORDER) Routine 02/09/2015 12:00 AM CDT from Last 3 Months or Most Recently Relevant to Health Maintenance Results * URINE BACTERIA CULTURE (07/21/2024 5:57 PM MEDART OPERATOR) SPEC DESCRIPTION URINE CLEAN CATCH 07/21/2024 10:01 PM MEDART OPERATOR [facility] SPECIAL REQUESTS NO SPECIAL REQUEST 07/21/2024 10:01 PM [facility] CULTURE RESULT POLYMICROBIAL GROWTH CONSISTENT WITH NORMAL GENITAL SULY. SUSCEPTIBILITIES NOT ROUTINELY PERFORMED. 07/23/2024 8:08 AM [facility] URINE SPECIMEN OBTAINED BY CLEAN CATCH PROCEDURE / Unknown 07/21/2024 5:57 PM MEDART OPERATOR 07/21/2024 10:02 PM MEDART OPERATOR us Kari Cronin DO MICROBIOLOGY - GENERAL ORDERABLE S Final Result [facility] [address] [place] [address], [place] [phone] [facility] [address], [place] * (ABNORMAL) URINALYSIS AUTO DIP (07/21/2024) COLOR (U) PALE YELLOW YELLOW [facility] (201), [facility] TRANSPARENCY CLOUDY(A) CLEAR [facility] (201), [facility] GLUCOSE (U) NEGATIVE NEGATIVE MG/DL [facility] (201), [facility] BILIRUBIN (U) NEGATIVE NEGATIVE [facility] L[facility] (201), [facility] KETONES MG/DL (U) NEGATIVE NEGATIVE MG/DL [facility] (201), [facility] SPECIFIC GRAVITY (U) 1.015 1.001 - 1.035 [facility] (201), [facility] BLOOD (U) SMALL (1+, Hemolyzed)( A) NEGATIVE [facility] (201), [facility] U PH 7.0 5.0 - 9.0 [facility] ([facility] PROTEIN (U) NEGATIVE NEGATIVE mg/dL [facility] (201), [facility] UROBILINOGEN 0.2 0.2 - 1.0 EU/dL = mg/dL [facility] (201), [facility] NITRITES NEGATIVE NEGATIVE MG/DL [facility] (201), [facility] LEUKOCYTES (U) 3+ (LARGE)(A) NEGATIVE [facility] (201), [facility] URINE SPECIMEN FROM URETHRA / Unknown 07/21/2024 Kari Cronin DO URINE ORDERABLES Final Result [facility] ([address]), [place] [address], * MAMMOGRAM GENERIC (SCAN ORDER) (07/17/2024) Anatomical Region Laterality Modality Other 07/17/2024 us Doc [facility] Group Scanned SCANNING Final Resu lt * (ABNORMAL) COMPREHENSIVE METABOLIC PANEL (07/15/2024 9:39 AM MEDART OPERATOR) GLUCOSE 101(H) 70 - 99 MG/DL 07/15/2024 10:34 AM MEDART OPERATOR [facility] BUN 20(H) 7 - 18 MG/DL 07/15/2024 10:34 AM MEDART OPERATOR [facility] CREATININE S/P/B 0.81 0.50 - 1.20 MG/DL 07/15/2024 10:34 AM MEDART OPERATOR [facility] SODIUM S/P/B 137 136 - 145 MMOL/L 07/15/2024 10:34 AM [facility] POTASSIUM S/P/B 3.8 3.5 - 5.1 MMOL/L 07/15/2024 10:34 AM [facility] CHLORIDE S/P/B 99(L) 100 - 108 MMOL/L 07/15/2024 10:34 AM [facility] CO2 27.7 21.0 - 32.0 MMOL/L 07/15/2024 10:34 AM [facility] CALCIUM S/P/B 8.7 8.5 - 10.1 MG/DL 07/15/2024 10:34 AM [facility] BILIRUBIN TOTAL S/P/B 0.5 0.2 - 1.2 MG/DL 07/15/2024 10:34 AM [facility] Comment: THIS ASSAY IS NOT RECOMMENDED FOR PATIENTS UNDERGOING TREATMENT WITH ELTROMBOPAG DUE TO THE POTENTIAL FOR FALSELY ELEVATED RESULTS. TOTAL PROTEIN S/P/B 7.1 6.4 - 8.2 G/DL 07/15/2024 10:34 AM [facility] ALBUMIN S/P/B 3.6 3.4 - 5.0 G/DL 07/15/2024 10:34 AM [facility] AST 17 15 - 37 U/L 07/15/2024 10:34 AM [facility] ALT 20 14 - 55 U/L 07/15/2024 10:34 AM [facility] ALKALINE PHOSPHATASE S/P/B 126 50 - 136 U/L 07/15/2024 10:34 AM [facility] ANION GAP 10.3 5.0 - 15.0 MMOL/L 07/15/2024 10:34 AM [facility] BUN CREATININE RATIO 24.7 6 - 26 07/15/2024 10:34 AM [facility] A/G RATIO 1.0 1.0 - 2.5 RATIO 07/15/2024 10:34 AM [facility] GFR ESTIMATE 78(L) >90 ML/MIN/1.7 3 M2 07/15/2024 10:34 AM [facility] Comment: NOTE: eGFR is not calculated for patients <18 years of age. This is an estimated GFR calculation using the new CKD EPI creatinine equation without race and so does not require a correction factor for race. This estimated GFR should not be used for calculating drug doses. 07/15/2024 9:39 AM MEDART OPERATOR us Kari Cronin DO LABORATORY Final Result [facility] [address] [place] [address], * (ABNORMAL) LIPID PANEL (07/15/2024 9:39 AM MEDART OPERATOR) CHOLESTEROL 240(H) <200 MG/DL 07/15/2024 5:41 PM [facility] TRIGLYCERIDES 230(H) <150 MG/DL 07/15/2024 5:41 PM [facility] HDL 41 >40.0 MG/DL 07/15/2024 5:41 PM [facility] LDL (CALCULATED) 153(H) <100 MG/DL 07/15/2024 5:41 PM [facility] NON HDL CHOLESTEROL 199(H) <130 MG/DL 07/15/2024 5:41 PM [facility] CHOL/HDL RATIO 5.9(H) 0.0 - 4.5 07/15/2024 5:41 PM [facility] VLDL CALCULATION 46 5 - 55 MG/DL 07/15/2024 5:41 PM [facility] LIPID INTERPRETATION 07/15/2024 5:41 PM [facility] Comment: [facility] REPORT RECOMMENDATIONS: ADULT CHILD LOW RISK: CHOLESTEROL <200 <170 TRIGLYCERIDE <150 --- HDL >=60 --- LDL <100 <110 BORDERLINE: CHOLESTEROL 200-239 170-199 TRIGLYCERIDE 150-199 --- HDL 40-59 --- LDL 100-159 110-129 HIGH RISK: CHOLESTEROL >=240 >=200 TRIGLYCERIDE >=200 --- HDL <40 --- LDL >=160 >=130 07/15/2024 9:39 AM MEDART OPERATOR us Kari Cronin DO LABORATORY Final Result [facility] [address] [place] [address], * (ABNORMAL) CBC W/DIFF AUTOMATED (07/15/2024 9:39 AM MEDART OPERATOR) WBC 6.63 4.50 - 11.00 x10'3/uL 07/15/2024 9:51 AM [facility] RBC 4.77 4.00 - 5.20 x10'6/uL 07/15/2024 9:51 AM [facility] HGB 13.6 12.0 - 16.0 G/DL 07/15/2024 9:51 AM [facility] HCT 41.4 38.0 - 48.0 % 07/15/2024 9:51 AM [facility] MCV 86.8 80.0 - 100.0 FL 07/15/2024 9:51 AM [facility] MCH 28.5 26.0 - 34.0 PG 07/15/2024 9:51 AM [facility] MCHC 32.9 31.0 - 37.0 G/DL 07/15/2024 9:51 AM [facility] RDW 14.0 11.6 - 14.8 % 07/15/2024 9:51 AM [facility] PLT 343 130 - 400 x10'3/uL 07/15/2024 9:51 AM [facility] MPV 9.9 7.0 - 12.0 FL 07/15/2024 9:51 AM [facility] CBC COMMENT AUTOMATED RBC MORPHOLOGY AND PLATELET EVALUATION NORMAL 07/15/2024 9:51 AM [facility] NEUTROPHILS % 47.7 40.0 - 74.0 % 07/15/2024 9:51 AM [facility] LYMPHOCYTES % 40.1 14.0 - 46.0 % 07/15/2024 9:51 AM [facility] MONOCYTES % 7.7 4.0 - 13.0 % 07/15/2024 9:51 AM [facility] EOSINOPHILS 3.2 0.0 - 7.0 % 07/15/2024 9:51 AM [facility] BASOPHILS 0.8 0.0 - 3.0 % 07/15/2024 9:51 AM [facility] IMMATURE GRANS % 0.5(H) 0.0 - 0.43 % 07/15/2024 9:51 AM [facility] NRBC % 0.0 % 07/15/2024 9:51 AM [facility] ABS. NEUTROPHILS TOTAL 3.17 1.69 - 7.81 x10'3/uL 07/15/2024 9:51 AM [facility] ABS. LYMPHOCYTES 2.66 0.21 - 5.42 x10'3/uL 07/15/2024 9:51 AM [facility] ABS. MONOCYTES 0.51 0.04 - 1.37 x10'3/uL 07/15/2024 9:51 AM [facility] ABS. EOSINOPHILS 0.21 0.00 - 0.68 x10'3/uL 07/15/2024 9:51 AM [facility] ABS. BASOPHILS 0.05 0.00 - 0.08 x10'3/uL 07/15/2024 9:51 AM [facility] ABS. IMMATURE GRANULOCYTES 0.03 0.00 - 0.06 x10'3/uL 07/15/2024 9:51 AM MEDART OPERATOR [facility] ABS. NUCLEATED RBC'S 0.00 0.00 - 0.01 x10'3/uL 07/15/2024 9:51 AM MEDART OPERATOR [facility] 07/15/2024 9:39 AM MEDART OPERATOR Kari Cronin DO LABORATORY Final Result [facility] [address] [place] [address], * VITAMIN D, 25 OH (07/15/2024 9:39 AM MEDART OPERATOR) Pathologist [facility] VITAMIN D 25 HYDROXY S/P/B 43 30 - 100 NG/ML 07/15/2024 2:43 PM MEDART OPERATOR [facility] Comment: INTERPRETATION DEFICIENT <20 INSUFFICIENT 20-29 SUFFICIENT 30-100 07/15/2024 9:39 AM MEDART OPERATOR Nadia Munoz MD LABORATORY Final Res ult Performing Organization Address City/[facility]/ZIP Co de Phone Number [facility] [address] [place] [address], * HEP C AB W RFX TO HCV RNA/PCR W RFX TO GENOTYPE,LIPA LD (01/12/2020 9:49 AM CDT) Pathologist [facility] HEPATITIS C AB NON-REACTIVE NON-REACT AISHA [facility] SIGNAL TO CUTOFF 0.01 <1.00 [facility] Comment: HCV antibody was non-reactive. There is no laboratory evidence of HCV infection. In most cases, no further action is required. However, if recent HCV exposure is suspected, a test for HCV RNA (test code 75924) is suggested. For additional information, please refer to http://education.Cloudyn.Pathfinder App/faq/TIP044 (This link is being provided for informational/ educational purposes only.) PAULINE BHAT DO,MPH THIS TEST WAS PERFORMED AT [facility] [id number] [place] [address] HEPATITIS C AB NO [facility] COMMENT Not required [facility] [facility] 01/12/2020 9:49 AM CDT 01/12/2020 9:49 AM CDT us Kari Cronin DO LABORATORY Final Result Performing Organization Address [facility] Center/State/ZIP Co de Phone Number [facility] [address] [place] [address] * COLONOSCOPY (02/09/2015 12:00 AM CDT) 02/09/2015 us Documents Scanned SCANNING Final Result Performing Organization Address [facility]/ZIP Co de Phone Number [facility] from Last 3 Months or Most Recently Relevant to Health Maintenance Insurance [employer] Advance Directives Documents on File Type Date Recorded Patient Embroidery Cutter Expl anation Legal Documents 01/05/2019 * Full Code (Latest Code Status on File) Date Activated Date Inactivated Comments 01/06/2024 5:50 PM 01/08/2024 5:28 PM Care Teams Divemaster Relationship Specialty Start Date End Date Kari Cronin DO [address] [place] [address] [place] [address] PCP - General FAMILY PRACTICE 01/02/19
--- OUTSIDE RECORDS SUMMARY | 2024-10-07 10:50 | XMS_ITS | Encounter Summary ---
Author Organization [facility] Address [facility] [place] [address] Care Team Providers Care Coverage Analyst Name Role Phone Kari Cronin Beti SIM Primary Care Provider [phone] Reason for Referral * Imaging (Urgent) - New Request Specialty Diagnoses / Procedures Referred By Contac t Referred To Contact RADIOLOGY Diagnoses S/P lumbar fusion Procedures CT LUMB SPINE WO CON Yolis Chung APRN [address] [facility] [address] [place] [address] Phone: tel: fax: Referral ID Status Reason Start Date Expiration Date V isits Requested Visits Authorized [id number] New Request 10/06/2024 10/06/2025 1 1 Reason for Visit * Reason Onset Date Comments Surgery Follow Up 10/06/2024 Encounter Details Date Type Department Care Team (Late st Contact Info) Description 10/06/2024 Telephone [facility] Multispecialty Care - [facility] [address] [facility], [address] [place] [phone] Yolis Chung APRN [address] [facility] [place], [place] [id number] Surgery Follow Up Social History Tobacco Use Types Packs/Day Years [...] from your doctor or pharmacy? Never 01/06/2024 [facility] Utilities Answer Date Recorded In the past 12 months has th e [employer], [employer], oil, or water [employer] threatened to shut off services in your [...] Recorded Patient Health Questionnaire-2 Score 0 09/06/2022 [facility] - Occupational Stress Questionnaire Answer Date [...] [facility] in the [facility], were you homeless or living in a alf (including now)? No 01/06/2024 Comments No Sex and Gender Information Value Date Recorded Sex Assigned at Female 07/22/2023 4:26 PM STUDENT FINANCE ADVISOR Legal Sex Female 4:04 PM CDT Gender Identity Female 07/04/2021 2:05 PM STUDENT FINANCE ADVISOR Sexual Orientation Straight 07/22/2023 4: 26 PM STUDENT FINANCE ADVISOR documented as of this encounter Functional Status * Are you deaf or do you have serious difficulty hearing Answer Date of Assessment Author Status No 01/06/2024 5:24 PM CDT Andreina Díaz RN Active * Are you blind or do you have serious difficulty seeing, even when wearing glasses? Answer Date of Assessment Author Status No 01/06/2024 5:24 PM CDT Andreina Díaz RN Active * Do you have serious difficulty walking or climbing stairs? Answer Date of Assessment Author Status No 01/06/2024 5:24 PM SANTOST Andreina Díaz RN Active * Do you have difficulty dressing or bathing? Answer Date of Assessment Author Status No 01/06/2024 5:24 PM CDT Andreina Díaz RN Active * Because of a physical, mental, or emotional condition, do you have difficulty doing errands alone such as visiting a doctor's office or shopping? Answer Date of Assessment Author Status No 01/06/2024 5:24 PM CDT Andreina Díaz RN Active documented as of this encounter Mental Status * Because of a physical, mental, or emotional condition, do you have serious difficulty concentrating, remembering, or making decisions? Answer Entry Date Author Status No 01/06/2024 5:24 PM CDT Andreina Díaz RN Active documented in this encounter Progress Notes * Yolis Chung APRN - 10/06/2024 4:20 PM CDT Patient is [address] lumbar spine for possible need for bone stimulator. CT ordered. Please call patient. documented in this encounter Plan of Treatment Upcoming Encounters Date Type Department Care Team (Late st Contact Info) Description 10/16/2024 2:30 PM CDT Appoint[place] [address] [place] [address] Yolis Chung APRN [address] [facility] [address] [place] [address] 10/23/2024 2:40 PM CDT Office Visit [facility] Multispecialty Care - [facility] [address] [facility], [address] [place] [address] Blaze Urena MD 3 [place] [address] Scheduled Orders Name Type Priority Associated Diagnoses Orde r Schedule CT LUMB SPINE WO CON CT CRISS S/P lumbar fusion Expected: 10/06/2024, Expires: 10/06/2025 documented as of this encounter Goals Goal Patient Goal Type Associated Problems Recent Progress Patient-Stated? Author Family - family caregiver with be involved in care transitions and discharge planning Lifestyle No Venkat Mansfield RN documented as of this encounter Visit Diagnoses Diagnosis S/P lumbar fusion- Primary Arthrodesis status documented in this encounter Additional Health Concerns Assessment Noted Time PHQ-9 Depression Total Score: 0 07/06/19 22 1:27 PM STUDENT FINANCE ADVISOR documented as of this encounter Care Teams Coverage Analyst Relationship Specialty Start Date End Date Kari Cronin DO [address] [place] [address] [place] [address] PCP - General FAMILY PRACTICE 01/02/19 documented as of this encounter
--- OUTSIDE RECORDS SUMMARY | 2024-10-07 10:50 | XMS_ITS | Clinical Summary ---
Author Organization [facility] Address [address] [place] [address] Care Team Providers Care Power Operator Name Role Phone Kari Cronin DO Primary Care Provider [phone] Source Comments [facility],non-owned Affiliates and Associated Physician Practices is amultiple site organization consisting of ambulatory clinics and hospital sitesin [place], [place], [place] and [place]. This disclosure is being madepursuant to the Care Everywhere program and may not contain all information available regarding this patient. Last updated 18.[facility] [employer] Allergies Active Allergy Reactions Criticality Noted Date Comments Codeine Urticaria,Swelling Medium 12/31/2022 Penicillins Rash Medium 12/31/2022 Alcohol Psychiatric Medium 12/31/2022 Medications * Be aware that medications may not be up to date on this document. Alwaysverify current medications with the patient. amLODIPine-vals nasim (Exforge) 5-160 MG tablet Take 0.5 (one-half) tablet by mouth 2 times daily 3 Active Cholecalciferol 25 MCG (1000 UT) Take 2 (two) tablets by mouth once daily Active vitamin D, ergocalciferol, (Drisdol) 1.25 MG (17525 UT) capsule Take 1 (one) capsule by mouth every 30 days 3 Active calcium carbonate (Tums) 500 MG chew tablet Take 1 (one) tablet by mouth once daily as needed for Heartburn Active estradiol (Estrace) 0.1 MG/GM vaginal cream Insert 1g into the vagina nightly for 1 week. Then insert 1g into the vagina two times a week thereafter. 42.5 g 3 3 Active Active Problems Problem Noted Date Diagnosed Date Age-related osteoporosis wit hout current pathological fracture 09/21/2019 01/05/2023 Overview (01/05/2023): Reclast at PCP office? ergo twice monthly, D 1000/day Fractures in 1984 stationar bike, walk Reclast at PCP office? ergo twice monthly, D 1000/day Fractures in 1984 stationar bike, walk Reclast at PCP office? 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) Stable, continue observation Last Assessment & Plan: 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) Stable, continue observation Mass of breast 05/16/2015 01/05/2023 Overview (01/05/2023): Date Onset: 05/16/2015 Osteoporosis 05/16/2015 01/05/2023 Overview (01/05/2023): Date Onset: 05/16/2015 Influenza B 07/29/2014 01/05/2023 Overview (01/05/2023): Date Onset: 07/29/2014 Ulcerative colitis 07/29/2014 01/05/2023 Overview (01/05/2023): Date Onset: 07/29/2014 History of repair of hip joint 01/28/2014 0 01/05/2023 Overview (01/05/2023): Date Onset: 01/28/2014 Muscular atrophy 01/28/2014 01/05/2023 Overview (01/05/2023): Date Onset: 01/28/2014 Asymptomatic postmenopausal status 07/30/2013 01/05/2023 Overview (01/05/2023): Date Onset: 07/30/2013 Other synovitis and tenosynovitis 07/30/2013 01/05/2023 Overview (01/05/2023): Date Onset: 07/30/2013 Vitreous detachment 07/30/2013 01/05/2023 Overview (01/05/2023): Note: Emeka to Adali Date Onset: 07/30/2013 Mild hyperlipidemia 11/03/2012 01/05/2023 Overview (01/05/2023): Date Onset: 11/03/2012 Tear film insufficiency 11/03/2012 01/06/20 Overview (01/05/2023): Date Onset: 11/03/2012 Hernia, hiatal 11/29/2011 01/05/2023 Hypertension, essential 11/29/2011 01/06/20 23 Gastroesophageal reflux 04/23/2011 01/06/20 23 Resolved Problems Problem Noted Date Diagnosed Date Resolved Date Urinary tract infection 07/29/2014 01/05/2023 07/02/2023 Overview (01/05/2023): Date Onset: 07/29/2014 Family History Medical History Relation Name Comments Cancer - Breast Maternal Grandmother Diabetes - Type 2 Maternal Uncle Diabetes - Type 2 Mother Diabetes - Type 2 Nephew 1 Diabetes - Type 2 Nephew 2 Diabetes - Type 2 Sister Relation Name Status Comments Maternal Grandmother Maternal Uncle Alive Mother Nephew 1 Alive Nephew 2 Alive Sister Social History Tobacco Use Types Packs/Day Years Used Date Smoking Tobacco: Never Passive Smoke Exposure: Never Smokeless Tobacco: Never Tobacco Cessation:Counseling Given: Not Answered Alcohol Use Standard Drinks/Week Comments Yes 0 (1 standard drink = 0.6 oz pur e alcohol) 2X/ MONTHLY PHQ-2 Answer Date Recorded PHQ2 TOTAL SCORE 0 12/29/2022 Comments No Sex and Gender Information Value Date Recorded Sex Assigned at Female 12/29/2022 4:30 PM CDT Legal 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 Gender Identity Female 12/29/2022 4:30 PM CDT Sexual Orientation Not on file Last Filed Vital Signs Vital Sign Reading Time Taken Comments Blood Pressure 140/90 12/31/2022 9:52 AM CDT Pulse - - Temperature 36.3 C (97.4 F) 12/31/2022 9:52 AM CDT Respiratory Rate - - Oxygen Saturation - - Inhaled Oxygen Concentration - - Weight 71.8 kg (158 lb 3.2 oz) 12/31/2022 9:52 A M CDT Height 161 cm (5' 3.39 ) 12/31/2022 9:52 AM CDT Body Mass Index 27.68 12/31/2022 9:52 AM CDT Plan of Treatment Health Maintenance Due Date Last Done Comments BONE DENSITY TESTING 1955 COLOGUARD (AGES 45-75) - COL ON CA SCREENING 1955 COLON MONITORING 1955 COLONOSCOPY - COLON CA SCREENING 1955 CT COLONOGRAPHY - COLON CA SCREENING 1955 Colorectal Cancer Screening 1955 FIT - COLON CA SCREENING 1955 FLEX SIG - COLON CA SCREENING 1955 LIPID TESTING 1955 MAMMOGRAM 1955 HEPATITIS C SCREENING 04/21/1971 DTAP/TDAP/TD VACCINES (1 - Tdap) 1972 PNEUMOCOCCAL VACCINE 50+ (1 of 1 - PCV) 2003 ZOSTER VACCINE (1 of 2) 2003 Respiratory Syncytial Virus (RSV) Vaccine Pt: or over 60 yrs (1 - Risk 60-74 years 1-dose series) 2013 SCREENING FOR DIABETES 12/31/2022 COVID-19 VACCINE (1 - 2023-2 5 season) 2024 DEPRESSION SCREENING 06/24/2024 12/31/2022 MEDICARE AWV CALENDAR YEAR 2024 INFLUENZA VACCINE (Season Ended) 2025 HEPATITIS B VACCINE Aged Out No longe r eligible based on patient's age to complete this topic HIB VACCINE Aged Out No longer eligi ble based on patient's age to complete this topic HPV VACCINE Aged Out No longer eligi ble based on patient's age to complete this topic MENINGOCOCCAL (Group B) VACC INE SHARED DECISION-MAKING Aged Out No longer eligibl e based on patient's age to complete this topic MENINGOCOCCAL GROUPS A/C/Y/W VACCINE Aged Out No longer eligible b ased on patient's age to complete this topic Insurance [employer] AET[employer] MEDICARE ADV Care Teams Power Operator Relationship Specialty Start Date End Date Kari Cronin DO [address] [place] [address] [place] [address] PCP - General Family Medicine 12/31/22
== END 2024-10-07 09:50 | disposition home or self-care (01) ==
LOC: ANHIMG 09:56
PROVIDERS: PCP Family Medicine Sports Medicine; Visit Provider Obstetrics & Gynecology Gynecology
DX: M81.0 Age-related osteoporosis without current pathological fracture (principal); M85.89 Other specified disorders of bone density and structure, multiple sites; Z78.0 Asymptomatic menopausal state
CPT/HCPCS: 77080